=== PATIENT | male | born 1985 | race Caucasian/White ===

== ENCOUNTER 2024-01-15 04:31 | Emergency (ER) | payer OTHER ==
[~2024-01-15] VITALS: Ht 172.7 cm; Wt 70.3 kg
[2024-01-15] MEDS ORDERED: CEPH500C2 PO (05:36)
[2024-01-15] MEDS: RABIES IMMUNE GLOBULIN/PF 150 UNIT/ML VIAL IM ONE (05:48)
[2024-01-15] MEDS: RABIES VACCINE (PCEC)/PF 1 EA KIT IM ONE (07:29)
[2024-01-15 07:31] VITALS: BP 124/88; TEMP 98.1; O2SAT 98
== END 2024-01-15 07:32 | disposition home or self-care (01) ==
LOC: ER 04:35
DX: S61.231A Puncture wound without foreign body of left index finger without damage to nail, initial encounter (principal); Z91.013 Allergy to seafood; W55.51XA Bitten by raccoon, initial encounter; Y93.89 Activity, other specified; Y92.89 Other specified places as the place of occurrence of the external cause; Y99.8 Other external cause status
CPT/HCPCS: 90375